=== PATIENT | male | born 1985 | race African-American/Black ===

== ENCOUNTER 2016-09-30 11:19 | Emergency (ER) | payer OTHER ==
[~2016-09-30] VITALS: Ht 175.3 cm; Wt 97.5 kg
[~2016-09-30 11:19] MED LIST: CARAFATE 1GM1000 MG PO; PROTONIX 40MG T40 MG PO; ZOFRAN ODT4 MG PO
[2016-09-30 11:29] VITALS: BP 141/80
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
[2016-09-30] MEDS ORDERED: CYCLOBENZAPRINE10 M1 PO (13:41)
[2016-09-30] MEDS ORDERED: IBUPROFEN100 MG/52 PO (13:41)
== END 2016-09-30 14:07 ==
LOC: ERH 11:19
DX: S39.012A Strain of muscle, fascia and tendon of lower back, initial encounter (principal); V89.2XXA Person injured in unspecified motor-vehicle accident, traffic, initial encounter; Y93.9 Activity, unspecified; Y92.9 Unspecified place or not applicable
CPT/HCPCS: 72100